=== PATIENT | male | born 2000 | race American Indian/Alaskan Native ===

== ENCOUNTER 2020-04-09 00:59 | Emergency (ER) | payer MEDICAID ==
[2020-04-09] MEDS ORDERED: SODIUM CHLORIDE 0.9% 1000 ML 1,000 ML IV ONE (01:30)
[2020-04-09] MEDS ORDERED: ONDANSETRON 4 MG/2 ML INJ IV ONE (01:30)
[2020-04-09] MEDS ORDERED: LITHIUM CARBONATE 300 MG CAP PO ONE (01:31)
[2020-04-09] MEDS ORDERED: QUEtiapine 25 MG TAB PO ONE (01:31)
[2020-04-09] MEDS ORDERED: VALPROIC ACID 250 MG CAP PO ONE (01:31)
--- NOTE | 2020-04-09 01:35 | Emergency Department Report ---
ED General Adult HPI - General Chief complaint: Nausea/Vomiting/Diarrhea Stated complaint: MEDICAION WITHDRAW,VOMITING BLOOD Time Seen by Provider: 04/09/20 01:25 Source: patient Mode of arrival: Ambulatory Limitations: No Limitations - History of Present Illness Initial comments: Patient is 19 years old male with history of schizoaffective and bipolar disorder. Patient presented to the ER complaining of nausea and vomiting for the last few hours. Patient stated that he did not have his antipsychotic medication which include lithium, valproic acid and Seroquel. Patient stated that it happened before when he did not receive his medication. Patient stated that the pharmacy informed him that he will be able to get it tomorrow. Patient denied any auditory or visual hallucination. No suicidal or homicidal ideation. - Related Data Previous Rx's Medication Instructions Recorded Last Taken Type Promethazine [Phenergan] 25 mg AR Q6HR PRN #20 supp.rect 04/09/20 Unknown Rx Allergies Allergy/AdvReac Type Severity Reaction Status Date / Time trazodone Allergy Unknown Verified 04/09/20 01:06 ED Review of Systems ROS: Stated complaint: MEDICAION WITHDRAW,VOMITING BLOOD Other details as noted in HPI Comment: All other systems reviewed and negative Constitutional: denies: chills, fever Respiratory: denies: cough, shortness of breath, SOB with exertion, SOB at rest, wheezing Cardiovascular: denies: chest pain Gastrointestinal: nausea, vomiting. denies: abdominal pain, diarrhea, constipation, hematemesis, melena, hematochezia Genitourinary: frequency Musculoskeletal: denies: back pain Neurological: denies: headache, weakness, numbness, paresthesias, confusion Psychiatric: denies: anxiety, depression, auditory hallucinations, visual hallucinations, homicidal thoughts, suicidal thoughts ED Past Medical Hx - Past Medical History Previous Medical History?: Yes Hx Hypertension: Yes Hx GERD: Yes Hx Psychiatric Treatment: Yes (Schizoaffective, bipolar, and depression) Additional medical history: hypothroid - Surgical History Past Surgical History?: No - Social History Smoking Status: Current Every Day Smoker Substance Use Type: None - Medications Home Medications: Home Medications Medication Instructions Recorded Confirmed Last Taken Type Promethazine [Phenergan] 25 mg AR Q6HR PRN #20 supp.rect 04/09/20 Unknown Rx ED Physical Exam - General Limitations: No Limitations General appearance: alert, in no apparent distress - Head Head exam: Present: atraumatic, normocephalic, normal inspection - Eye Eye exam: Present: normal appearance, PERRL - ENT ENT exam: Present: normal exam, normal orophraynx, mucous membranes moist - Neck Neck exam: Present: normal inspection, full ROM. Absent: tenderness, meningis mus - Respiratory Respiratory exam: Present: normal lung sounds bilaterally - Cardiovascular Cardiovascular Exam: Present: regular rate, normal rhythm, normal heart sounds - GI/Abdominal GI/Abdominal exam: Present: soft, normal bowel sounds. Absent: distended, tenderness, guarding, rebound, rigid, organomegaly, mass, bruit, pulsatile mass, hernia - Extremities Exam Extremities exam: Present: normal inspection, full ROM, normal capillary refill. Absent: pedal edema, calf tenderness - Back Exam Back exam: Present: normal inspection. Absent: CVA tenderness (R), CVA tenderness (L) - Neurological Exam Neurological exam: Present: alert, oriented X3, CN II-XII intact, normal gait, reflexes normal. Absent: motor sensory deficit - Psychiatric Psychiatric exam: Present: normal mood. Absent: depressed, anxious, flat affec t, manic, homicidal ideation, suicidal ideation - Skin Skin exam: Present: warm, intact, normal color ED Course Vital Signs 04/09/20 04/09/20 04/09/20 01:02 01:59 02:00 Temperature 98.5 F 98.2 F Pulse Rate 96 H 75 Respiratory 16 16 Rate Blood Pressure 149/58 Blood Pressure 124/66 [Right] O2 Sat by Pulse 98 99 99 Oximetry 04/09/20 04/09/20 04/09/20 02:01 02:15 02:30 Temperature Pulse Rate Respiratory Rate Blood Pressure 124/66 124/66 118/63 Blood Pressure [Right] O2 Sat by Pulse 99 100 99 Oximetry 04/09/20 04/09/20 02:45 03:00 Temperature Pulse Rate Respiratory Rate Blood Pressure 118/63 136/66 Blood Pressure [Right] O2 Sat by Pulse 99 99 Oximetry ED Medical Decision Making - Lab Data Result diagrams: 04/09/20 01:35 04/09/20 01:35 - Medical Decision Making Patient is 19 years old male with history of schizoaffective and bipolar disorder. Patient presented to the ER complaining of nausea and vomiting for the last few hours. Patient stated that he did not have his antipsychotic medication which include lithium, valproic acid and Seroquel. Patient stated that it happened before when he did not receive his medication. Patient stated that the pharmacy informed him that he will be able to get it tomorrow. Patient denied any auditory or visual hallucination. No suicidal or homicidal ideation. Labs reviewed and is unremarkable. Patient received Zofran and normal saline. Patient stated that he is feeling much better no nausea or vomiting observed. Patient given a dose of lithium, Seroquel and valproic acid. Patient advised to follow-up with his primary doctor in the next 2 to 3 days and to return to the ER if he develop any new symptoms. Critical care attestation.: If time is entered above; I have spent that time in minutes in the direct care of this critically ill patient, excluding procedure time. ED Disposition Clinical Impression: Acute nausea with nonbilious vomiting Disposition: DC-01 TO HOME OR SELFCARE Is pt being admited?: No Condition: Stable Instructions: Nausea and Vomiting, Adult Prescriptions: Promethazine [Phenergan] 25 mg AR Q6HR PRN #20 supp.rect PRN Reason: Vomiting Referrals: PRIMARY CARE, [Referring] - 3-5 Days
[2020-04-09 01:49] LABS: Basophils % (Auto) 0.3 % (0.0-1.8); Eosinophils # (Auto) 0.1 K/mm3 (0.0-0.4); Eosinophils % (Auto) 0.6 % (0.0-4.3); Hemoglobin 14.3 gm/dl (11.8-15.2); Lymphocytes # (Auto) 2.6 K/mm3 (1.2-5.4); Lymphocytes % (Auto) 25.6 % (13.4-35.0); Monocytes # (Auto) 0.8 K/mm3 (0.0-0.8); Monocytes % (Auto) 8.2 % (0.0-7.3)
[2020-04-09 02:04] LABS: Bilirubin,Urine NEG (Negative); Blood,Urine SM (Negative); Color,Urine Yellow (Yellow); Mucus,Urine FEW /HPF
[2020-04-09 02:07] LABS: BUN/Creatinine Ratio 9; Blood Urea Nitrogen 12 mg/dL (9-20); Calcium 10.1 mg/dL (8.4-10.2); Hemolysis Index 8
[2020-04-09 02:52] LABS: Hematocrit 41.6 % (35.5-45.6); Mean Corpuscular HGB Conc 34 % (32-34); Mean Corpuscular Volume 92 fl (84-94); Platelet Count 318 K/mm3 (140-440); Red Blood Count 4.53 M/mm3 (3.65-5.03)
[2020-04-09 03:03] VITALS: BP 136/66
== END 2020-04-09 03:43 | disposition home or self-care (01) ==
LOC: ED 00:59
DX: R11.2 Nausea with vomiting, unspecified (principal); I10 Essential (primary) hypertension; K21.9 Gastro-esophageal reflux disease without esophagitis; F25.0 Schizoaffective disorder, bipolar type; F17.200 Nicotine dependence, unspecified, uncomplicated; Z79.899 Other long term (current) drug therapy; Z88.8 Allergy status to other drugs, medicaments and biological substances
CPT/HCPCS: 36415; 80048; 81001; 85025; 87086; 96361; 96374; 99283; J2405; J7030